=== PATIENT | female | born 2005 | race Caucasian/White ===

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

== ENCOUNTER 2025-01-18 19:11 | Emergency (ER) | payer OTHER, SELFPAY ==
[2025-01-18 19:29] VITALS: BP 120/68; PULSE 72; RESP 16; TEMP 36.6; O2SAT 97; BMI 27.1
--- NOTE | 2025-01-18 21:28 | ED.HA ---
HPI - Headache General Chief Complaint: Headache Stated Complaint: Headache, nausea, fatigue since Saturday night Time Seen by Provider: 01/18/25 21:27 Source: patient, RN notes reviewed and old records reviewed Mode of arrival: Ambulatory Limitations: no limitations Related Data Home Medications ?Medication ?Instructions ?Recorded ?Confirmed ondansetron 4 mg disintegrating mg PO 03/31/24 12/15/24 tablet Previous Rx's ?Medication ?Instructions ?Recorded ferrous sulfate 325 mg (65 mg 325 mg PO Q OTHER DAY #60 tabs 07/07/24 iron) tablet,delayed release fluticasone propionate 50 1 spray intranasal DAILY #16 grams 07/07/24 mcg/actuation nasal spray,suspension (Flonase Allergy Relief) loratadine 10 mg tablet (Claritin) 10 mg PO DAILY #30 tabs 08/24/24 amitriptyline 10 mg tablet 10 mg PO DAILY #30 tabs 12/15/24 escitalopram oxalate 20 mg tablet 20 mg PO DAILY #30 tabs 12/15/24 (Lexapro) sumatriptan succinate 50 mg tablet 50 mg PO Q2H PRN migraine headache 12/15/24 #14 tabs Allergies Allergy/AdvReac Type Severity Reaction Status Date / Time No Known Drug Allergies Allergy Verified 01/18/25 19:31 Patient History Medical History IBS (irritable bowel syndrome) Anxiety and depression Anxiety Exam Initial Vital Signs Initial Vital Signs: Vital Signs Temperature 98 F 01/18/25 19:29 Pulse Rate 72 01/18/25 19:29 Respiratory Rate 16 01/18/25 19:29 Blood Pressure 120/68 01/18/25 19:29 Pulse Oximetry 97 01/18/25 19:29 Oxygen Delivery Method Room Air 01/18/25 19:29 Course Vital Signs Vital signs: Vital Signs - 8 hr 01/18/25 19:29 Temperature 98 F Pulse Rate 72 Respiratory Rate 16 Blood Pressure 120/68 Pulse Oximetry 97 Oxygen Delivery Method Room Air Discharge Plan Departure Prescriptions: No Action ondansetron 4 mg tablet,disintegrating PO fluticasone propionate [Flonase Allergy Relief] 50 mcg/actuation spray,suspension 1 spray intranasal DAILY Qty: 16 0RF Rx Instructions: administer into each nostril ferrous sulfate 325 mg (65 mg iron) tablet,delayed release (DR/EC) 325 mg PO Q OTHER DAY Qty: 60 0RF sumatriptan succinate 50 mg tablet 50 mg PO Q2H MDD 100mg PRN (Reason: migraine headache) Qty: 14 1RF amitriptyline 10 mg tablet 10 mg PO DAILY Qty: 30 2RF escitalopram oxalate [Lexapro] 20 mg tablet 20 mg PO DAILY Qty: 30 2RF loratadine [Claritin] 10 mg tablet 10 mg PO DAILY Qty: 30 0RF Referrals: Lala Trinidad MD [Primary Care Provider, Family Practice]
--- NOTE | 2025-01-18 21:30 | PC.NURSE ---
Patient not present in [place] when attempting to bring back for evaluation by provider. Provider notified.
== END 2025-01-18 21:30 | disposition left against medical advice (07) ==
PROVIDERS: Emergency Provider Emergency Medicine; PCP Family Medicine
CPT/HCPCS: 99281

== ENCOUNTER 2025-01-18 22:29 | Emergency (ER) | payer OTHER, SELFPAY ==
[2025-01-18 22:41] VITALS: BP 116/62; PULSE 60; RESP 17; TEMP 37; O2SAT 99
--- NOTE | 2025-01-18 23:29 | ED.HA ---
HPI - Headache General Chief Complaint: Headache Stated Complaint: Weak/Headache/Nausea Time Seen by Provider: 01/18/25 23:28 Mode of arrival: Ambulatory History of Present Illness HPI Narrative: 19-year-old female patient with a history of anxiety/depression, migraines and irritable bowel syndrome who complains of frontal headache waxing and waning for 2-3 days with no fever or chills. She has had some nausea and had 1 episode of vomiting today. Mild photophobia. She tried a dose of sumatriptan at home without benefit. Related Data Home Medications ?Medication ?Instructions ?Recorded ?Confirmed ondansetron 4 mg disintegrating mg PO 03/31/24 12/15/24 tablet Previous Rx's ?Medication ?Instructions ?Recorded ferrous sulfate 325 mg (65 mg 325 mg PO Q OTHER DAY #60 tabs 07/07/24 iron) tablet,delayed release fluticasone propionate 50 1 spray intranasal DAILY #16 grams 07/07/24 mcg/actuation nasal spray,suspension (Flonase Allergy Relief) loratadine 10 mg tablet (Claritin) 10 mg PO DAILY #30 tabs 08/24/24 amitriptyline 10 mg tablet 10 mg PO DAILY #30 tabs 12/15/24 escitalopram oxalate 20 mg tablet 20 mg PO DAILY #30 tabs 12/15/24 (Lexapro) sumatriptan succinate 50 mg tablet 50 mg PO Q2H PRN migraine headache 12/15/24 #14 tabs Allergies Allergy/AdvReac Type Severity Reaction Status Date / Time No Known Drug Allergies Allergy Verified 01/18/25 22:41 Review of Systems Review of Systems ROS Unobtainable: All systems reviewed & are unremarkable except as noted in HPI and below Neurologic Neurologic: Reports as per HPI Patient History Medical History (Updated 01/19/25 @ 00:35 by Med Melo MD) IBS (irritable bowel syndrome) Anxiety and depression Social History Smoking Status: Never smoker Smoking Status: Never smoker Exam Narrative Exam Narrative: General: Alert and conversant. Mild distress. Appears well nourished and well hydrated Craniofacial: Palpation and massage with forehead and temples produces some relief. No evidence of trauma. Nontender and no swelling. Eyes: PERRLA EOMI conjunctiva clear HEENT: Oropharynx clear with no swelling, exudate or asymmetry of the pharynx. Nares clear. No sinus tenderness Neck: No tenderness or adenopathy. No meningismus. Lungs: Nonlabored respiration. Neuro: Alert and oriented. Cranial nerves, motor, sensory and cerebellar all grossly intact. No focal deficit Skin: Warm and normal color. No rashes Psychological: Normal affect and interaction. No evidence of delusion or psychosis. Normal mood. Initial Vital Signs Initial Vital Signs: Vital Signs Temperature 98.6 F 01/18/25 22:41 Pulse Rate 60 01/18/25 22:41 Respiratory Rate 17 01/18/25 22:41 Blood Pressure 116/62 01/18/25 22:41 Pulse Oximetry 99 01/18/25 22:41 Oxygen Delivery Method Room Air 01/18/25 22:41 Course Orders Ordered: Discontinued Medications Ketorolac Tromethamine (Ketorolac 30 Mg/Ml Vial) 30 mg IM NOW ONE Stop: 01/18/25 23:36 Last Admin: 01/18/25 23:41 Dose: 30 mg Documented By: BARRY Ondansetron HCl (Ondansetron 4 Mg Odt) 4 mg SL NOW ONE Stop: 01/18/25 23:36 Last Admin: 01/18/25 23:41 Dose: 4 mg Documented By: BARRY Vital Signs Vital signs: Vital Signs - 8 hr 01/18/25 22:41 Temperature 98.6 F Pulse Rate 60 Respiratory Rate 17 Blood Pressure 116/62 Pulse Oximetry 99 Oxygen Delivery Method Room Air MDM - Headache MDM Narrative Medical decision making narrative: Improved with ketorolac IM. Based on the history physical exam and response to ketorolac I believe this is probably not a migraine but a tension headache since it is bilateral and there is no photophobia or minimal photophobia. There are no red flag symptoms or findings that would indicate a need for CT scanning. Patient has improved and will be discharged home with instructions to rest and take fluids and follow up with her doctor as needed. Return to the ER if worse. Discharge Plan Departure Patient Disposition: Home Clinical Impression: Headache Instructions: DI for Headache Activity Restrictions/Additional Instructions: Plan: Hydration, rest and continue current medications. Follow up with your doctor as needed for headache management. Return to the ER if worse Prescriptions: No Action ondansetron 4 mg tablet,disintegrating PO fluticasone propionate [Flonase Allergy Relief] 50 mcg/actuation spray,suspension 1 spray intranasal DAILY Qty: 16 0RF Rx Instructions: administer into each nostril ferrous sulfate 325 mg (65 mg iron) tablet,delayed release (DR/EC) 325 mg PO Q OTHER DAY Qty: 60 0RF sumatriptan succinate 50 mg tablet 50 mg PO Q2H MDD 100mg PRN (Reason: migraine headache) Qty: 14 1RF amitriptyline 10 mg tablet 10 mg PO DAILY Qty: 30 2RF escitalopram oxalate [Lexapro] 20 mg tablet 20 mg PO DAILY Qty: 30 2RF loratadine [Claritin] 10 mg tablet 10 mg PO DAILY Qty: 30 0RF Referrals: Lala Trinidad MD [Primary Care Provider, Family Practice] Stand Alone Forms: Patient Portal/API
[2025-01-18] MEDS: ONDANSETRON 4 MG ODT SL (23:41)
[2025-01-18] MEDS: KETOROLAC 30 MG/ML VIAL IM (23:41)
[2025-01-19 00:42] VITALS: BP 100/56; PULSE 66; RESP 16; TEMP 36.9; O2SAT 99
== END 2025-01-19 00:49 | disposition home or self-care (01) ==
PROVIDERS: Emergency Provider Emergency Medicine; PCP Family Medicine
DX: R51.9 Headache, unspecified (principal); R11.2 Nausea with vomiting, unspecified; Z53.21 Procedure and treatment not carried out due to patient leaving prior to being seen by health care provider
CPT/HCPCS: 96372; 99281; 99283; J1885